=== PATIENT | female | born 1985 | race African-American/Black ===

== ENCOUNTER 2018-03-20 00:52 | Emergency (ER) | payer OTHER ==
[~2018-03-20] VITALS: Ht 170.2 cm; Wt 65.8 kg
[2018-03-20 00:56] VITALS: BP 130/67
[2018-03-20 01:43] VITALS: BP 125/72
[2018-03-20 01:44] VITALS: BP 111/81
[2018-03-20] MEDS ORDERED: BACTRIM DS TAB1 EAC1 ORAL (01:45)
[2018-03-20] MEDS ORDERED: IBUPROFEN600 MG ORAL (01:45)
--- NOTE | 2018-03-20 01:45 | Emergency Room Report ---
History of Present Illness General Chief Complaint: Headache Source: Patient, EMS Present Illness HPI Is a 32-year-old female with no past medical history. She presents with chief complaint of headache. Onset for last 2-3 weeks. She has coughing congestion. Subjective fever chills but no nausea no vomiting. Cough is nonproductive in nature. Denies any other complaint. Pain is 7 out of 10. Nothing made it better. Coughing makes it worse. Allergies: Coded Allergies: PENICILLINS (Verified Allergy, Mild, 03/20/18) Patient History Past Medical History: see triage record, old chart reviewed Past Surgical History: none Pertinent Family History: none Social History: Reports: smoking Now: No Immunizations: other Reviewed Nursing Documentation: PMH: Agreed; PSxH: Agreed Nursing Documentation-PMH Past Medical History: No Stated History Review of Systems Eye: Denies: eye pain, blurred vision ENT: Denies: ear pain, nose congestion, throat swelling Respiratory: Reports: cough; Denies: shortness of breath Cardiovascular: Denies: chest pain, palpitations Gastrointestinal: Denies: abdominal pain, diarrhea, nausea, vomiting Musculoskeletal: Denies: back pain, joint pain Skin: Denies: rash Neurological: Reports: headache; Denies: numbness Endocrine: Denies: increased thirst, increased urine Hematologic/Lymphatic: Denies: easy bruising All Other Systems: negative except mentioned in HPI Physical Exam Vital Signs Date Time Temp Pulse Resp B/P (MAP) Pulse Ox O2 Delivery O2 Flow Rate FiO2 03/20/18 00:52 98.1 84 18 157/89 97 Room Air vitals with high blood pressure Sp02 EP Interpretation: reviewed, normal General Appearance: well appearing, no apparent distress, alert Head: normocephalic, atraumatic Eyes: bilateral eye PERRL, bilateral eye EOMI ENT: hearing grossly normal, normal pharynx, other - Tenderness over maxillary sinuses Neck: full range of motion, supple, no meningismus Respiratory: chest non-tender, lungs clear, normal breath sounds Cardiovascular #1: regular rate, rhythm, no murmur Gastrointestinal: normal bowel sounds, non tender, no mass, no organomegaly, no bruit, non-distended Musculoskeletal: back normal, gait/station normal, normal range of motion Psychiatric: mood/affect normal Skin: warm/dry Medical Decision Making Diagnostic Impression: Primary Impression: Headache Qualified Codes: G44.209 - Tension-type headache, unspecified, not intractable Additional Impressions: Sinusitis, acute maxillary Qualified Codes: J01.00 - Acute maxillary sinusitis, unspecified Bronchitis ER Course Issue with acute sinusitis. Most likely causing her headache. No evidence of meningitis, sepsis, pneumonia to name a few. Because of the duration, we'll put her on antibiotics. Last Vital Signs Date Time Temp Pulse Resp B/P (MAP) Pulse Ox O2 Delivery O2 Flow Rate FiO2 03/20/18 00:56 98.1 77 18 130/67 97 Room Air Status: improved Disposition: HOME, SELF-CARE Condition: Stable Scripts Ibuprofen* (MOTRIN*) 600 Mg Tablet 600 MG ORAL THREE TIMES A DAY, #30 TAB 0 Refills Prov: Kyle Wilkes MD 03/20/18 Trimethoprim/Sulfamethoxazole 160/800* (BACTRIM DS TABLET*) 1 Each Tablet 1 TAB ORAL Q12H, #14 TAB 0 Refills Prov: Kyle Wilkes MD 03/20/18 Referrals: [facility],REFERRING (PCP) Patient Instructions: Sinus Headache Additional Instructions: Follow-up with your doctor in 7 days. Stop smoking. 7 using drugs. Return if worse. Kyle Wilkes MD Mar 20, 2018 01:45
== END 2018-03-20 01:50 | disposition home or self-care (01) ==
LOC: EDBD 00:52 → EMR 01:10
DX: R51 Headache (principal); J01.00 Acute maxillary sinusitis, unspecified; Z88.0 Allergy status to penicillin
CPT/HCPCS: 99283